=== PATIENT | female | born 1960 | race Caucasian/White ===

== ENCOUNTER 2017-07-12 20:35 | Observation (INO) | payer BC, MEDICARE ==
[2017-07-12] MEDS ORDERED: NITROGLYCERIN OINT 1 INCH/GM PACKET TOPICAL STA (21:33)
[2017-07-12] MEDS ORDERED: ASPIRIN 81 MG PO STA (21:33)
--- NOTE | 2017-07-12 21:35 | ED ---
General Adult HPI - General Chief complaint: Chest Pain Stated complaint: Abd pain Time Seen by Provider: 07/12/17 20:35 Source: patient, RN notes reviewed Mode of arrival: ambulatory Limitations: no limitations - History of Present Illness Initial comments: This is a 57-year-old female presents emergency department with past medical history significant for high cholesterol. Patient states she started having chest pain yesterday morning and it lasts approximately an hour and then it subsides and comes back later. Patient states exertion or movement does not appear to make it worse. Patient states when she has the chest pain radiates across her chest from the right side to the left side. Patient denies any difficulty breathing or shortness of breath. Patient states she is mildly nauseated with the pain comes. Patient states she has no family history of heart process. Patient denies any recent fever chills or cough. Patient states she was doing some heavy lifting recently but again it does not hurt for her to move her upper extremities or to take a deep breath. Patient denies any abdominal pain. Patient denies any recent vomiting or diarrhea. Patient denies any headache patient denies numbness weakness. Patient denies lightheadedness dizziness or near syncopal episode. - Related Data Allergies Allergy/AdvReac Type Severity Reaction Status Date / Time No Known Allergies Allergy Verified 07/12/17 20:40 Review of Systems ROS Statement: Those systems with pertinent positive or pertinent negative responses have been documented in the HPI. ROS Other: All systems not noted in ROS Statement are negative. Past Medical History Additional Past Medical History / Comment(s): MD History of Any Multi-Drug Resistant Organisms: None Reported Past Surgical History: Appendectomy Past Psychological History: No Psychological Hx Reported Smoking Status: Never smoker Past Alcohol Use History: Rare Past Drug Use History: None Reported General Exam - General Exam Comments Initial Comments: GENERAL: Patient is well-developed and well-nourished. Patient is nontoxic and well- hydrated and is in mild distress. ENT: Neck is soft and supple. No significant lymphadenopathy is noted. Oropharynx is clear. Moist mucous membranes. Neck has full range of motion without eliciting any pain. EYES: The sclera were anicteric and conjunctiva were pink and moist. Extraocular movements were intact and pupils were equal round and reactive to light. Eyelids were unremarkable. PULMONARY: Unlabored respirations. Good breath sounds bilaterally. No audible rales rhonchi or wheezing was noted. CARDIOVASCULAR: There is a regular rate and rhythm without any murmurs gallops or rubs. ABDOMEN: Soft and nontender with normal bowel sounds. No palpable organomegaly was noted. There is no palpable pulsatile mass. SKIN: Skin is clear with no lesions or rashes and otherwise unremarkable. NEUROLOGIC: Patient is alert and oriented x3. Cranial nerves II through XII are grossly intact. Motor and sensory are also intact. Normal speech, volume and content. Symmetrical smile. MUSCULOSKELETAL: Normal extremities with adequate strength and full range of motion. No lower extremity swelling or edema. No calf tenderness. LYMPHATICS: No significant lymphadenopathy is noted PSYCHIATRIC: Normal psychiatric evaluation. Normal interpersonal interactions appears functionally intact in deals appropriately with others. No signs of depression. No signs of anxiety. Limitations: no limitations Course Vital Signs 07/12/17 07/12/17 20:36 22:53 Temperature 98.5 F Pulse Rate 97 107 H Respiratory 20 16 Rate Blood Pressure 168/82 131/84 O2 Sat by Pulse 98 96 Oximetry Medical Decision Making - Medical Decision Making EKG shows sinus rhythm at 79 bpm AK interval is 94 QRS is 84 QT interval 374 QTC is 428. Patient's EKG shows no ST segment elevation or depression or T wave abnormalities are noted I went in to reevaluate the patient she continued to have intermittent right- sided chest pain she stated that the pain was not radiating to the left is much as it was earlier. I spoke with Dr. Price he agreed to admit the patient admitted the patient wrote admitting orders - Lab Data Result diagrams: 07/12/17 21:04 07/12/17 21:04 Lab Results 07/12/17 07/12/17 07/12/17 Range/Units 21:04 21:04 21:04 WBC 16.2 H (3.8-10.6) k/uL RBC 4.64 (3.80-5.40) m/uL Hgb 14.7 (11.4-16.0) gm/dL Hct 43.8 (34.0-46.0) % MCV 94.4 (80.0-100.0) fL MCH 31.6 (25.0-35.0) pg MCHC 33.5 (31.0-37.0) g/dL RDW 12.5 (11.5-15.5) % Plt Count 262 (150-450) k/uL Neutrophils % 92 % Lymphocytes % 5 % Monocytes % 2 % Eosinophils % 0 % Basophils % 0 % Neutrophils # 15.0 H (1.3-7.7) k/uL Lymphocytes # 0.8 L (1.0-4.8) k/uL Monocytes # 0.3 (0-1.0) k/uL Eosinophils # 0.0 (0-0.7) k/uL Basophils # 0.0 (0-0.2) k/uL PT (9.0-12.0) sec INR (<1.2) APTT (22.0-30.0) sec D-Dimer (<0.60) mg/L FEU Sodium 140 (137-145) mmol/L Potassium 4.3 (3.5-5.1) mmol/L Chloride 102 (98-107) mmol/L Carbon Dioxide 23 (22-30) mmol/L Anion Gap 15 mmol/L BUN 16 (7-17) mg/dL Creatinine 0.70 (0.52-1.04) mg/dL Est GFR (MDRD) Af Amer >60 (>60 ml/min/1.73 sqM) Est GFR (MDRD) Non-Af >60 (>60 ml/min/1.73 sqM) Glucose 166 H (74-99) mg/dL Calcium 10.5 H (8.4-10.2) mg/dL Magnesium 2.4 H (1.6-2.3) mg/dL Total Bilirubin 0.5 (0.2-1.3) mg/dL AST 30 (14-36) U/L ALT 40 (9-52) U/L Alkaline Phosphatase 78 (38-126) U/L Total Creatine Kinase 85 (30-135) U/L CK-MB (CK-2) 1.1 (0.0-2.4) ng/mL CK-MB (CK-2) Rel Index 1.3 Troponin I <0.012 (0.000-0.034) ng/mL Total Protein 8.0 (6.3-8.2) g/dL Albumin 4.7 (3.5-5.0) g/dL Urine Color Urine Appearance (Clear) Urine pH (5.0-8.0) Ur Specific [place] (1.001-1.035) Urine Protein (Negative) Urine Glucose (UA) (Negative) Urine Ketones (Negative) Urine Blood (Negative) Urine Nitrite (Negative) Urine Bilirubin (Negative) Urine Urobilinogen (<2.0) mg/dL Ur Leukocyte Esterase (Negative) 07/12/17 07/13/17 Range/Units 21:04 00:06 WBC (3.8-10.6) k/uL RBC (3.80-5.40) m/uL Hgb (11.4-16.0) gm/dL Hct (34.0-46.0) % MCV (80.0-100.0) fL MCH (25.0-35.0) pg MCHC (31.0-37.0) g/dL RDW (11.5-15.5) % Plt Count (150-450) k/uL Neutrophils % % Lymphocytes % % Monocytes % % Eosinophils % % Basophils % % Neutrophils # (1.3-7.7) k/uL Lymphocytes # (1.0-4.8) k/uL Monocytes # (0-1.0) k/uL Eosinophils # (0-0.7) k/uL Basophils # (0-0.2) k/uL PT 10.0 (9.0-12.0) sec INR 1.0 (<1.2) APTT 20.6 L (22.0-30.0) sec D-Dimer 0.64 H (<0.60) mg/L FEU Sodium (137-145) mmol/L Potassium (3.5-5.1) mmol/L Chloride (98-107) mmol/L Carbon Dioxide (22-30) mmol/L Anion Gap mmol/L BUN (7-17) mg/dL Creatinine (0.52-1.04) mg/dL Est GFR (MDRD) Af Amer (>60 ml/min/1.73 sqM) Est GFR (MDRD) Non-Af (>60 ml/min/1.73 sqM) Glucose (74-99) mg/dL Calcium (8.4-10.2) mg/dL Magnesium (1.6-2.3) mg/dL Total Bilirubin (0.2-1.3) mg/dL AST (14-36) U/L ALT (9-52) U/L Alkaline Phosphatase (38-126) U/L Total Creatine Kinase (30-135) U/L CK-MB (CK-2) (0.0-2.4) ng/mL CK-MB (CK-2) Rel Index Troponin I (0.000-0.034) ng/mL Total Protein (6.3-8.2) g/dL Albumin (3.5-5.0) g/dL Urine Color Yellow Urine Appearance Clear (Clear) Urine pH 6.0 (5.0-8.0) Ur Specific [place] >1.050 H (1.001-1.035) Urine Protein Trace H (Negative) Urine Glucose (UA) Negative (Negative) Urine Ketones Negative (Negative) Urine Blood Negative (Negative) Urine Nitrite Negative (Negative) Urine Bilirubin Negative (Negative) Urine Urobilinogen <2.0 (<2.0) mg/dL Ur Leukocyte Esterase Negative (Negative) Disposition Clinical Impression: Chest pain Disposition: ADMITTED IP TO THIS [facility] Referrals: Harini Hernandez III, MD [Primary Care Provider] - 1-2 days Time of Disposition: 00:30
[2017-07-12 21:56] LABS: Basophils % (A) 0 %; Eosinophils % (A) 0 %; HCT 43.8 % (34.0-46.0); HGB 14.7 gm/dL (11.4-16.0); Lymphocytes # (A) 0.8 k/uL (1.0-4.8); Lymphocytes % (A) 5 %; MCH 31.6 pg (25.0-35.0); MCHC 33.5 g/dL (31.0-37.0); MCV 94.4 fL (80.0-100.0); Mean Platelet Volume 8.1; Monocytes # (A) 0.3 k/uL (0-1.0); Monocytes % (A) 2 %; Neutrophils % (A) 92 %; Platelet Count 262 k/uL (150-450); RBC 4.64 m/uL (3.80-5.40); RDW 12.5 % (11.5-15.5); WBC 16.2 k/uL (3.8-10.6)
[2017-07-12 22:06] LABS: D-Dimer 0.64 mg/L FEU (<0.60)
--- NOTE | 2017-07-12 22:06 | XR ---
EXAMINATION TYPE: XR chest 2V DATE OF EXAM: 07/12/2017 COMPARISON: None HISTORY: 57-year-old female with chest pain TECHNIQUE: PA and lateral views FINDINGS: Dextro convex scoliosis centered along the thoracolumbar junction. Heart is normal size. Aorta and pu lmonary vasculature within normal limits. Mild hyperinflation. No consolidation or pleural effusion. IMPRESSION: Scoliosis. Hyperinflation may relate to depth of inspiration or underlying emphysema. No acute cardio pulmonary process.
[2017-07-12 22:07] LABS: ALT 40 U/L (9-52); AST 30 U/L (14-36); Albumin 4.7 g/dL (3.5-5.0); Alkaline Phosphatase 78 U/L (38-126); Anion Gap 15 mmol/L; Blood Urea Nitrogen 16 mg/dL (7-17); Calcium 10.5 mg/dL (8.4-10.2); Carbon Dioxide 23 mmol/L (22-30); Chloride 102 mmol/L (98-107); Glucose 166 mg/dL (74-99); Magnesium 2.4 mg/dL (1.6-2.3); Potassium 4.3 mmol/L (3.5-5.1); Sodium 140 mmol/L (137-145); Total Bilirubin 0.5 mg/dL (0.2-1.3)
[2017-07-12 22:15] LABS: Creatine Kinase 85 U/L (30-135)
[2017-07-12 22:19] LABS: Partial Thromboplastin Time 20.6 sec (22.0-30.0)
[2017-07-12 22:27] LABS: Creatine Kinase MB 1.1 ng/mL (0.0-2.4); Troponin I <0.012 ng/mL (0.000-0.034)
[2017-07-12] MEDS ORDERED: RX INFO: IV CONTRAST WAS GIVEN 1 EACH MISC MISCELLANE PRN (22:41)
[2017-07-12] MEDS ORDERED: SODIUM CHLORIDE 0.9% 500 ML IV ONE (22:43)
--- NOTE | 2017-07-12 23:28 | CT ---
EXAMINATION TYPE: CT chest angio for PE DATE OF EXAM: 07/12/2017 COMPARISON: NONE HISTORY: chest pain CT DLP: 131.90 mGycm Automated exposure control for dose reduction was used. CONTRAST: CT Chest for pulmonary embolism performed with with IV Contrast, patient injected with 75 mL of Omnip aque 350. FINDINGS: There are 3-D post processed images. The lungs are clear of consolidation. There is no evidence of a pulmonary mass. I see no filling defe cts in the pulmonary arteries. There is no mediastinal adenopathy. There is no evidence of aortic ane urysm or dissection. Heart size is normal. There is no pericardial effusion. There is no pleural effu brionna. There are no hilar masses. There is a thoracolumbar dextroscoliosis. There is no pleural effusi on. IMPRESSION: No evidence of pulmonary embolism. Thoracolumbar dextroscoliosis.
[2017-07-13 00:18] LABS: Appearance,Urine Clear (Clear); Bilirubin,Urine Negative (Negative); Blood,Urine Negative (Negative); Color,Urine Yellow; Glucose,Urine (UA) Negative (Negative); Ketones,Urine Negative (Negative); Leukocyte Esterase,Urine Negative (Negative); Nitrite,Urine Negative (Negative); Protein,Urine Trace (Negative); Urobilinogen,Urine <2.0 mg/dL (<2.0)
[2017-07-13 00:29] LABS: Specific Gravity,Urine >1.050 (1.001-1.035)
[2017-07-13] MEDS ORDERED: NITROGLYCERIN SL TABS 0.4 MG TAB SUBLINGUAL PRN (00:30)
[2017-07-13 01:48] VITALS: BMI 22.3
[2017-07-13] MEDS ORDERED: BISACODYL 10 MG SUPP RECTAL PRN (02:18)
[2017-07-13] MEDS ORDERED: MORPHINE SULFATE 2 MG/ML SYRINGE IVP ONE (02:18)
[2017-07-13 04:00] LABS: Creatine Kinase 81 U/L (30-135)
[2017-07-13 04:10] LABS: Creatine Kinase MB 0.9 ng/mL (0.0-2.4)
[2017-07-13 04:14] LABS: Troponin I <0.012 ng/mL (0.000-0.034)
[2017-07-13] MEDS: NITROGLYCERIN OINT 1 INCH/GM PACKET TOPICAL SCH ×2 (07:28→14:48)
[2017-07-13 08:22] VITALS: RESP 16
--- NOTE | 2017-07-13 08:54 | US ---
EXAMINATION TYPE: US gallbladder DATE OF EXAM: 07/13/2017 COMPARISON: Previous study dated 10/12/2014. CLINICAL HISTORY: Pain. Patient stated had constipation for 1 week, then noted right lateral chest pa in after bowel movements over one hour period. EXAM MEASUREMENTS: Liver Length: 14.5 cm Gallbladder Wall: 0.1 cm CBD: 0.4 cm Right Kidney: 10.7 x 4.7x 3.9 cm Pancreas: wnl Liver: wnl Gallbladder: wnl Evidence for sonographic Werner's sign: No CBD: wnl Right Kidney: wnl The pancreas is unremarkable. The liver is normal in size without biliary dilatation. The gallbladder is normal without evidence cholelithiasis. The gallbladder wall measures 1 mm. The di stal common hepatic duct measures 4 mm. There is no sonographic Werner's sign. The right kidney is normal. IMPRESSION: NORMAL RIGHT UPPER QUADRANT ULTRASOUND.
[2017-07-13 09:26] LABS: Creatine Kinase 80 U/L (30-135)
[2017-07-13 09:39] LABS: Creatine Kinase MB 0.8 ng/mL (0.0-2.4); Troponin I <0.012 ng/mL (0.000-0.034)
--- NOTE | 2017-07-13 09:39 | P.CRDCN ---
History of Present Illness Consult date: 07/13/17 Consult reason: chest pain History of present illness: Mrs. Brown is a pleasant 57-year-old female past medical history significant for dyslipidemia. She denies history of coronary artery disease, hypertension or diabetes. She is a nonsmoker. She has no family history of heart disease. She has never seen a archeologist classical for any reason. We have been asked to see her in consultation for complaints of chest pain. She states yesterday she developed pain in the mid sternal region described as a burning after she ate at a local diner and a sloppy Rolly sandwich. She states the pain was a burning sensation and radiated to the right chest wall and shoulder. She denies associated shortness of breath, dizziness, palpitations, nausea or vomiting. The pain is intermittent in nature and she can't specify no aggravating or alleviating factors. She states she is also been suffering from chronic constipation over the previous one to 2 weeks. She also describes symptoms of pain to the right flank radiating down to the right hip region. EKG on arrival reveals sinus mechanism with no acute ST or T-wave abnormalities. Chest x-ray negative for acute cardiopulmonary process. CTA negative for pulmonary embolism. Laboratory data has been reviewed, to be VC 16.2, d-dimer 0.64 magnesium 2.4, cardiac enzymes negative 2. Current cardiac medications include atorvastatin 20 mg daily and aspirin 81 mg daily. There is no old cardiac testing to review. Review of systems At the time of my exam: CONSTITUTIONAL: Denies fever. Denies chills. EYES: Denies blurred vision. Denies vision changes. Denies eye pain. EARS, NOSE, MOUTH & THROAT: Denies headache. Denies sore throat. Denies ear pain. CARDIOVASCULAR: Denies chest pain. Denies shortness of breath. Denies orthopnea. Denies PND. Denies palpitations. RESPIRATORY: Denies cough. GASTROINTESTINAL: Denies abdominal pain. Denies diarrhea. Denies constipation. Denies nausea. Denies vomiting. MUSCULOSKELETAL: Denies myalgias. INTEGUMENTARY: Denies pruitis. Denies rash. NEUROLOGIC: Denies numbness. Denies tingling. Denies weakness. PSYCHIATRIC: Denies anxiety. Denies depression. ENDOCRINE: Denies fatigue. Denies weight change. Denies polydipsia. Denies polyurina. GENITOURINARY: Denies burning, hematuria or urgency with micturation. HEMATOLOGIC: Denies history of anemia. Denies bleeding. Physical exam Blood pressure 141/79 heart rate 78 afebrile GENERAL: This is a 57-year-old female in no apparent distress at the time of my examination. HEENT: Head is atraumatic, normocephalic. Pupils are equal, round. Sclerae anicteric. Conjunctivae are clear. Mucous membranes of the mouth are moist. Neck is supple. There is no jugular venous distention. No carotid bruit is heard. LUNGS: Clear to auscultation no wheezes, rales or rhonchi. No chest wall tenderness is noted on palpation or with deep breathing. HEART: Regular rate and rhythm without murmurs, rubs or gallops. S1 and S2 heard. ABDOMEN: Soft, nontender. Bowel sounds are heard. No organomegaly noted. EXTREMITIES: No evidence of peripheral edema and no calf tenderness noted. VASCULAR: Radial and dorsalis pedis pulses palpated, no evidence of clubbing. NEUROLOGIC: Patient is awake, alert and oriented x3. ASSESSMENT 1. Chest pain, atypical. EKG is normal and cardiac enzymes are negative. An acute coronary event has been ruled out. 2. Dyslipidemia PLAN Acute coronary event has been ruled out with a normal EKG and negative cardiac enzymes. Further cardiac workup is needed as an inpatient. She can follow-up as an outpatient upon discharge. Presentation does not sound cardiac in nature. May be referred pain secondary to chronic abdominal pain and constipation. Thank you kindly for this consultation. Nurse Practitioner note has been reviewed, I agree with a documented findings and plan of care. Patient was seen and examined. Past Medical History Past Medical History: Hyperlipidemia Additional Past Medical History / Comment(s): History of Any Multi-Drug Resistant Organisms: None Reported Past Surgical History: Appendectomy Past Anesthesia/Blood Transfusion Reactions: No Reported Reaction Smoking Status: Never smoker - Past Family History Mother Family Medical History: Diabetes Mellitus, Thyroid Disorder Father History Unknown: Yes Medications and Allergies Home Medications Medication Instructions Recorded Confirmed Type Acetaminophen Tab [Tylenol Tab] 1,000 mg PO Q6HR PRN 07/13/17 07/13/17 History Aspirin EC [Ecotrin Low Dose] 81 mg PO DAILY PRN 07/13/17 07/13/17 History Atorvastatin [Lipitor] 20 mg PO HS 07/13/17 07/13/17 History Magnesium Citrate [Citrate of 296 ml PO DAILY PRN 07/13/17 07/13/17 History Magnesia] Sennosides [Ex-Lax] 15 mg PO DAILY PRN 07/13/17 07/13/17 History Sennosides [Senna] 8.6 mg PO DAILY PRN 07/13/17 07/13/17 History Simethicone [Gas-X] 125 mg PO DAILY PRN 07/13/17 07/13/17 History Allergies Allergy/AdvReac Type Severity Reaction Status Date / Time No Known Allergies Allergy Verified 07/13/17 09:26 Physical Exam Vitals: Vital Signs Temp Pulse Pulse Pulse Resp BP BP 07/13/17 08:00 98.4 F 92 16 137/83 07/13/17 03:03 98.0 F 78 18 141/79 07/13/17 00:46 75 16 143/84 07/12/17 22:53 107 H 16 131/84 07/12/17 20:36 98.5 F 97 20 168/82 Pulse Ox 07/13/17 08:00 97 07/13/17 03:03 98 07/13/17 00:46 99 07/12/17 22:53 96 07/12/17 20:36 98 Intake and Output 07/12/17 07/13/17 07/13/17 22:59 06:59 14:59 Other: # Voids 1 Weight 58.967 kg 58.9 kg Results 07/12/17 21:04 07/12/17 21:04 Cardiac Enzymes 07/12/17 07/12/17 07/13/17 Range/Units 21:04 21:04 03:12 AST 30 (14-36) U/L CK-MB (CK-2) 1.1 0.9 (0.0-2.4) ng/mL Troponin I <0.012 <0.012 (0.000-0.034) ng/mL Coagulation 07/12/17 Range/Units 21:04 PT 10.0 (9.0-12.0) sec APTT 20.6 L (22.0-30.0) sec CBC 07/12/17 Range/Units 21:04 WBC 16.2 H (3.8-10.6) k/uL RBC 4.64 (3.80-5.40) m/uL Hgb 14.7 (11.4-16.0) gm/dL Hct 43.8 (34.0-46.0) % Plt Count 262 (150-450) k/uL Comprehensive Metabolic Panel 07/12/17 Range/Units 21:04 Sodium 140 (137-145) mmol/L Potassium 4.3 (3.5-5.1) mmol/L Chloride 102 (98-107) mmol/L Carbon Dioxide 23 (22-30) mmol/L BUN 16 (7-17) mg/dL Creatinine 0.70 (0.52-1.04) mg/dL Glucose 166 H (74-99) mg/dL Calcium 10.5 H (8.4-10.2) mg/dL AST 30 (14-36) U/L ALT 40 (9-52) U/L Alkaline Phosphatase 78 (38-126) U/L Total Protein 8.0 (6.3-8.2) g/dL Albumin 4.7 (3.5-5.0) g/dL Current Medications Generic Name Dose Route Start Last Admin Trade Name Freq PRN Reason Stop Dose Admin Aspirin 325 mg 07/14/17 09:00 Aspirin PO DAILY [facility] Bisacodyl 10 mg 07/13/17 02:18 Dulcolax RECTAL DAILY PRN Constipation Miscellaneous Information 1 each 07/12/17 22:41 07/13/17 00:09 Rx Info: Iv Contrast Was Given MISCELLANE 07/14/17 22:41 1 each DAILY PRN Administration Per Protocol Nitroglycerin 1 inch 07/13/17 06:00 07/13/17 07:28 Nitro-Bid Oint TOPICAL Not Given Q6HR [facility] Nitroglycerin 0.4 mg 07/13/17 00:30 Nitrostat SUBLINGUAL Q5M PRN Chest Pain Intake and Output 07/12/17 07/13/17 07/13/17 22:59 06:59 14:59 Other: # Voids 1 Weight 58.967 kg 58.9 kg 07/12/17 21:04 07/12/17 21:04
[2017-07-13] MEDS ORDERED: ACETAMINOPHEN TAB 325 MG TAB PO PRN (10:24)
[2017-07-13 12:25] VITALS: BP 144/71; PULSE 91; TEMP 97.6
[2017-07-14] MEDS ORDERED: ASPIRIN 325 MG TAB PO SCH (09:00)
--- NOTE | 2017-07-14 17:49 | P.HPIM ---
History of Present Illness H&P Date: 07/13/17 Chief Complaint: chest pain Ms. Brown is a 57-year-old female with a past medical history of hyperlipidemia and chronic constipationcoming in with a chief complaint of right -sided abdominal quadrant pain ongoing for the past couple of days. Patient states that the abdominal pain radiates to the chest. Patient denies having any difficulty in breathing, diaphoresis, nausea vomiting. Patient states that she was doing some heavy lifting recently but the pain started only yesterday. Patient has been constipated for the for the past 1 week. She has history of chronic constipation. Patient denies having any nausea vomiting or diarrhea. As the pain was radiating to her chest cardiology services has been consulted and ACS has been ruled out. Patient had 2 small bowel movements , which are mostly loose and her abdominal pain is better now. The patient feels that she is back to her baseline and so she is being discharged today in a stable condition. Review of Systems REVIEW OF SYSTEMS: PSYCH: no anxiety or depression NEURO:No c/o weakness of the extremties, No facial droop, No speech abnormalities. VASCULAR: Peripheral nervous system within the normal limits no edema HEMATOLOGIC: No history of easy bleeding and bruising . No recent infections . RESPIRATORY: No cough, No SOB, No chest discomfort. IMMUNE: No infections INTEGUMENT: no rashes OPHTHALMOLOGIC: No blurry vision and no eye discharge : No dysuria or hematuria BODY FORMER: No bleeding PV CARDIAC: No chest pain , shortness of breath , paroxysmal nocturnal dyspnea MUSCULOSKELETAL : No Aches or pains in the joints or muscles. GI: as per HPI Past Medical History Past Medical History: Hyperlipidemia Additional Past Medical History / Comment(s): MD History of Any Multi-Drug Resistant Organisms: None Reported Past Surgical History: Appendectomy Past Anesthesia/Blood Transfusion Reactions: No Reported Reaction Smoking Status: Never smoker - Past Family History Mother Family Medical History: Diabetes Mellitus, Thyroid Disorder Father History Unknown: Yes Medications and Allergies Home Medications Medication Instructions Recorded Confirmed Type Acetaminophen Tab [Tylenol Tab] 1,000 mg PO Q6HR PRN 07/13/17 07/13/17 History Aspirin EC [Ecotrin Low Dose] 81 mg PO DAILY PRN 07/13/17 07/13/17 History Atorvastatin [Lipitor] 20 mg PO HS 07/13/17 07/13/17 History Magnesium Citrate [Citrate of 296 ml PO DAILY PRN 07/13/17 07/13/17 History Magnesia] Sennosides [Ex-Lax] 15 mg PO DAILY PRN 07/13/17 07/13/17 History Sennosides [Senna] 8.6 mg PO DAILY PRN 07/13/17 07/13/17 History Simethicone [Gas-X] 125 mg PO DAILY PRN 07/13/17 07/13/17 History Allergies Allergy/AdvReac Type Severity Reaction Status Date / Time No Known Allergies Allergy Verified 07/13/17 09:26 Physical Exam Vitals: Vital Signs Temp Pulse Pulse Pulse Resp BP BP 07/13/17 12:00 97.6 F 78 91 16 144/71 07/13/17 08:00 98.4 F 78 92 16 137/83 07/13/17 03:03 98.0 F 78 18 141/79 07/13/17 00:46 75 16 143/84 07/12/17 22:53 107 H 16 131/84 07/12/17 20:36 98.5 F 97 20 168/82 Pulse Ox 07/13/17 12:00 92 L 07/13/17 08:00 97 07/13/17 03:03 98 07/13/17 00:46 99 07/12/17 22:53 96 07/12/17 20:36 98 Intake and Output 07/12/17 07/13/17 07/13/17 22:59 06:59 14:59 Other: Voiding Method Toilet # Voids 1 Weight 58.967 kg 58.9 kg GENERAL EXAM GEN. APPEARANCE: alert, in no apparent distress HEAD EXAM: atraumatic, normocephalic, normal inspection EYE EXAM: normal appearance, PERRL, EOMI. Absent: scleral icterus, conjunctival injection, periorbital swelling ENT EXAM: normal exam, mucous membranes moist NECK EXAM: normal inspection. Absent: tenderness, meningismus, full ROM, lymphadenopathy RESPIRATORY EXAM: normal lung sounds bilaterally. Absent: respiratory distress , wheezes, rales, rhonchi, stridor CARDIOVASCULAR EXAM: regular rate, normal rhythm, normal heart sounds. Absent : systolic murmur, diastolic murmur, rubs, gallop, clicks GI/ABDOMINAL EXAM: soft, mild tenderness in the right upper quadrant, no organomegaly, normal bowel sounds. EXTREMITIES EXAM: normal inspection, full ROM, normal capillary refill. Absent : tenderness, pedal edema, joint swelling, calf tenderness NEUROLOGICAL EXAM: alert, oriented X3, CN II-XII intact, motor sensory deficit PSYCHIATRIC EXAM: normal affect, normal mood SKIN EXAM: warm, dry, intact, normal color. Absent: rash Results CBC & Chem 7: 07/12/17 21:04 07/12/17 21:04 Labs: Abnormal Lab Results - Last 24 Hours (Table) 07/12/17 07/12/17 07/12/17 Range/Units 21:04 21:04 21:04 WBC 16.2 H (3.8-10.6) k/uL Neutrophils # 15.0 H (1.3-7.7) k/uL Lymphocytes # 0.8 L (1.0-4.8) k/uL APTT 20.6 L (22.0-30.0) sec D-Dimer 0.64 H (<0.60) mg/L FEU Glucose 166 H (74-99) mg/dL Calcium 10.5 H (8.4-10.2) mg/dL Magnesium 2.4 H (1.6-2.3) mg/dL Ur Specific [place] (1.001-1.035) Urine Protein (Negative) 07/13/17 Range/Units 00:06 WBC (3.8-10.6) k/uL Neutrophils # (1.3-7.7) k/uL Lymphocytes # (1.0-4.8) k/uL APTT (22.0-30.0) sec D-Dimer (<0.60) mg/L FEU Glucose (74-99) mg/dL Calcium (8.4-10.2) mg/dL Magnesium (1.6-2.3) mg/dL Ur Specific [place] >1.050 H (1.001-1.035) Urine Protein Trace H (Negative) Thrombosis Risk Factor Assmnt - Choose All That Apply Each Factor Represents 1 point: Age 41-60 years Thrombosis Risk Factor Assessment Total Risk Factor Score: 1 Thrombosis Risk Factor Assessment Level: Low Risk Assessment and Plan Assessment: Acute abdominal pain secondary to constipation resolved Chest pain - atypical- radiating from the abdomen Hyperlipidemia Plan:patient had 2 small bowel movements and her abdominal pain is relieved. Patient had serial troponins and EKGs within normal limits and cardiology has cleared her for discharge. Patient is being discharged home in a stable condition today.
--- NOTE | 2017-07-14 17:49 | P.DS ---
Providers Date of admission: 07/13/17 00:32 Attending physician: Robina Mujica Consults: 07/13/17 00:30 Consult Physician Urgent Consulting Provider: [facility] Consult Reason/Comments: Chest pain Do you want consulting provider notified?: Yes Primary care physician: Harini Allen [facility] Course: Ms. Brown is a 57-year-old female with a past medical history of hyperlipidemia and chronic constipationcoming in with a chief complaint of right -sided abdominal quadrant pain ongoing for the past couple of days. Patient states that the abdominal pain radiates to the chest. Patient denies having any difficulty in breathing, diaphoresis, nausea vomiting. Patient states that she was doing some heavy lifting recently but the pain started only yesterday. Patient has been constipated for the for the past 1 week. She has history of chronic constipation. Patient denies having any nausea vomiting or diarrhea. As the pain was radiating to her chest cardiology services has been consulted and ACS has been ruled out. Patient had 2 small bowel movements , which are mostly loose and her abdominal pain is better now. The patient feels that she is back to her baseline and so she is being discharged today in a stable condition. DISCHARGE DIAGNOSIS: Acute abdominal pain secondary to constipation resolved Chest pain - atypical- radiating from the abdomen Hyperlipidemia Plan:patient had 2 small bowel movements and her abdominal pain is relieved. Patient had serial troponins and EKGs within normal limits and cardiology has cleared her for discharge. Patient is being discharged home in a stable condition today. Plan - Discharge Summary New Discharge Prescriptions: No Action Atorvastatin [Lipitor] 20 mg PO HS Sennosides [Senna] 8.6 mg PO DAILY PRN PRN Reason: Constipation Sennosides [Ex-Lax] 15 mg PO DAILY PRN PRN Reason: Constipation Simethicone [Gas-X] 125 mg PO DAILY PRN PRN Reason: GAS PAIN Aspirin EC [Ecotrin Low Dose] 81 mg PO DAILY PRN PRN Reason: Chest Pain Acetaminophen Tab [Tylenol Tab] 1,000 mg PO Q6HR PRN PRN Reason: Pain Magnesium Citrate [Citrate of Magnesia] 296 ml PO DAILY PRN PRN Reason: Constipation Discharge Medication List Acetaminophen Tab [Tylenol Tab] 1,000 mg PO Q6HR PRN 07/13/17 [History] Aspirin EC [Ecotrin Low Dose] 81 mg PO DAILY PRN 07/13/17 [History] Atorvastatin [Lipitor] 20 mg PO HS 07/13/17 [History] Magnesium Citrate [Citrate of Magnesia] 296 ml PO DAILY PRN 07/13/17 [History] Sennosides [Ex-Lax] 15 mg PO DAILY PRN 07/13/17 [History] Sennosides [Senna] 8.6 mg PO DAILY PRN 07/13/17 [History] Simethicone [Gas-X] 125 mg PO DAILY PRN 07/13/17 [History] Follow up Appointment(s)/Referral(s): Tong Rojo MD [STAFF PHYSICIAN] - As Needed Harini Hernandez III, MD [Primary Care Provider] - 1-2 days
== END 2017-07-13 15:13 | disposition home or self-care (01) ==
LOC: EC 20:35 → 3OBS 07-13 00:32
PROVIDERS: ADMIT Internal Medicine; ATTEND Internal Medicine
DX: R07.89 Other chest pain (principal); E78.5 Hyperlipidemia, unspecified; K59.09 Other constipation; E78.00 Pure hypercholesterolemia, unspecified; R11.0 Nausea; Z83.3 Family history of diabetes mellitus; Z79.899 Other long term (current) drug therapy; Z79.82 Long term (current) use of aspirin
CPT/HCPCS: 99285; 96361 ×2; 96374; 36415; 93005; 85379; 80053; 82550 ×2; 82553 ×2; 83735; 84484 ×2; 85025; 85610; 85730; 81003; 71046; 76705; 71275; G0378; Q9967; J2270